=== PATIENT | female | born 1950 | race Caucasian/White ===

== ENCOUNTER 2017-03-07 05:29 | Inpatient (IN) | payer OTHER, MEDICAID ==
--- NOTE | 2017-03-02 08:30 | GHP ---
[f rep st] PREOP HISTORY AND PHYSICAL DATE OF ADMISSION: 03/07/2017 PROBLEM: Left hip arthritis. HISTORY OF PRESENT ILLNESS: The patient is a 66-year-old woman admitted for a left total hip arthrop lasty. She has had severe progressive pain in her left hip. It is painful to walk. She is using a walker. She has pain during the day and night pain. She has tried anti-inflammatory medications and physical therapy without benefit. She had a right total hip arthroplasty in [place] in 2005. She is admitted for a left total hip art hroplasty. PAST MEDICAL HISTORY: She is treated for hypertension, diabetes, and gout. She has peripheral neuro levy secondary to her diabetes. CURRENT MEDICATIONS: Allopurinol 300 mg per day. Amitriptyline 100 mg at bedtime. Atenolol 50 mg/c hlorthalidone 25 mg once daily. Metformin 1000 mg b.i.d. She was recently started on antibiotics fo r a sore throat. She will discontinue those prior to her surgery. PAST MEDICAL HISTORY: There is no history of heart disease, stents, DVT, hepatitis, sleep apnea, or bleeding problems. DRUG ALLERGIES: Sulfa. She also has environmental allergies. Metal allergies: None. Latex allerg y: None. SOCIAL HISTORY: The patient is single. She will have assistance at home from her sons. She occasio ema smokes cigarettes. She does not drink alcohol. She is retired. FAMILY HISTORY: Positive for stroke and diabetes. PHYSICAL EXAMINATION: VITAL SIGNS: Height 5 feet 3 inches. Weight 208 pounds. BMI 36.8. HEENT: Eyes: Conjunctivae and sclerae are clear. Pupils are round and reactive. Mouth: Good oral hygiene . She has removable partial upper and lower bridges. CHEST: Clear. HEART: Regular rhythm. No mu rmurs. EXTREMITIES: Pertinent findings are limited to her left hip. She has full extension and 90 degrees of flexion. 0 degrees of internal and external rotation. Abduction 20 degrees. IMAGING: Her films show a hmbbu-fk-ppmac Biomet total hip on the right. She has very severe degener ative arthritis on the left side. She is xlal-cv-twhp. Extensive osteophyte formation is present. She is at least 10 mm short on the left. PLAN: She will undergo a left total hip arthroplasty. The surgery has been described to her, includ ing the risks, complications, expectations, and recovery time. I have explained to her the risk of d islocation, leg length inequality, infection, and sciatic nerve injury. She also understands there i s a small chance she might need revision surgery in the future. She is short preoperatively, and I i ntend to lengthen her on the left. All her questions have been answered, and she consents to surgery . Copy requested to: Dr. Jazmin George /[id number]/MODL
[2017-03-07] MEDS ORDERED: ROPIVACAINE 0.2% 80 MG, EPINEPHrine 0.2 MG, KETOROLAC TROMETHAMINE 30 MG in BAG 0 ML IU ONE (06:00)
[2017-03-07] MEDS ORDERED: TRANEXAMIC ACID IV ONE (06:00)
[2017-03-07] MEDS ORDERED: POVIDONE-IODINE 20 ML in SODIUM CL IRRIG SOLUTION 500 ML IRR ONE (06:00)
[2017-03-07] MEDS ORDERED: NS IV ONE (06:00)
[2017-03-07] MEDS ORDERED: ceFAZolin 2 GM/DEXTROSE 100 ML IV ONE (06:19)
[2017-03-07] MEDS ORDERED: DEXAMETHASONE 4 MG/ML VIAL IVP ONE (06:19)
[2017-03-07] MEDS ORDERED: FAMOTIDINE 20 MG TAB PO ONE (06:19)
[2017-03-07] MEDS ORDERED: ACETAMINOPHEN 325 MG TAB PO ONE (06:19)
[2017-03-07] MEDS ORDERED: LIDOCAINE 1% 2 ML INJ ID PRN (06:21)
[2017-03-07] MEDS ORDERED: LR 1,000 ML IV ONE (06:21)
--- NOTE | 2017-03-07 07:02 | PDANEPAE ---
ANE History of Present Illness L Total hip arthroplasty ANE Past Medical History - Cardiovascular History Hx Hypertension: Yes Hx Arrhythmias: No Hx Chest Pain: No Hx Coronary Artery / Peripheral Vascular Disease: No Hx CHF / Valvular Disease: No Hx Palpitations: No Cardiovascular History Comment: PCP MONITORS BP MEDS - Pulmonary History Hx COPD: No Hx Asthma/Reactive Airway Disease: No Hx Recent Upper Respiratory Infection: No Hx Oxygen in Use at Home: No Hx Sleep Apnea: No Sleep Apnea Screening Result - Last Documented: Positive Pulmonary History Comment: DAVID TRIGGERS - Neurologic History Hx Cerebrovascular Accident: No Hx Seizures: No Hx Dementia: No - Endocrine History Hx Diabetes: Yes Hypothyroid: No Obesity: severe Endocrine History Comment: TYPE 2 DM, gout - Renal History Hx Renal Disorders: No - Liver History Hx Hepatic Disorders: Yes Hepatic History Comment: ELEVATED LIVER ENZYMES- PCP IS MONITORING - Neurological & Psychiatric Hx Hx Neurological and Psychiatric Disorders: Yes Neurological / Psychiatric History Comment: ANXIETY SURROUNDING SURGERY - Cancer History Hx Cancer: Yes Cancer History Comment: SKIN CA FROM LEFT ARM/ WRIST AREA - Congenital Disorder History Hx Congenital Disorders: No - GI History GERD: mild Hx Gastrointestinal Disorders: No - Other Health History Other Health History: WEARS READING GLASSES. UPPER AND LOWER PARTIAL PLATES - Chronic Pain History Chronic Pain: Yes (LEFT HIP PAIN- OSTEOARTHRITIS) - Surgical History Prior Surgeries: RIGHT MARIO 2006. HYSTERECTOMY AND APPY. GRANT. LEFT THUMB TRIGGER FINGER REPAIR. TONSILS CHILD ANE Review of Systems Review of Systems: - Exercise capacity METS (RN): 4 METS (limited ambulation due to severe hip pain) ANE Patient History - Allergies Allergies/Adverse Reactions: Sulfa (Sulfonamide Antibiotics) Allergy (Verified 02/12/17 10:54) Hives - Home Medications Home Medications: Allopurinol 02/12/17 [Last Taken 03/06/17] Atenolol-Chlorthalidone 50-25 02/12/17 [Last Taken 03/07/17 05:00] IBUPROFEN 02/12/17 [Last Taken 02/28/17] Metformin 1000 mg BID 02/12/17 [Last Taken 03/06/17] Potassium Chloride 02/12/17 [Last Taken 03/06/17] - NPO status NPO Since - Liquids (Date): 03/06/17 NPO Since - Liquids (Time): 22:00 NPO Since - Solids (Date): 03/06/17 NPO Since - Solids (Time): 18:00 - Anes Hx Anes Hx: no prior problems - Smoking Hx Smoking Status: Current some day smoker (Decreasing smoking amount in recent years, smoked since youth) - Alcohol Use Alcohol Use: None - Family Anes Hx Family Anes Hx: none Family Hx Anesthesia Complications: NONE ANE Labs/Vital Signs - Vital Signs Blood Pressure: 123/61 Heart Rate: 73 Respiratory Rate: 16 O2 Sat (%): 93 Height: 157.48 cm Weight: 94.347 kg ANE Physical Exam - Airway Neck exam: FROM Mallampati Score: Class 2 Mouth exam: dentures (partial) - Pulmonary Pulmonary: clear to auscultation - Cardiovascular Cardiovascular: regular rate and rhythym - ASA Status ASA Status: III ANE Anesthesia Plan Anesthesia Plan: general endotracheal anesthesia, spinal
--- NOTE | 2017-03-07 07:04 | PDHPUP ---
History & Physical Update H&P update statement: This history and physical update is based on an assessment of the patient which was completed after admission or registration (within 24 hours), but prior to the surgery/procedure. H&P update: H&P reviewed & patient examined, no change in patient's condition since H&P completed
[2017-03-07] MEDS ORDERED: MIDAZOLAM 2 MG/2 ML VIAL IVP ONE (07:08)
[2017-03-07] MEDS ORDERED: BUPIVACAINE 0.5% 30 ML SDV ONE (07:11)
[2017-03-07] MEDS ORDERED: RANITIDINE 50 MG/2 ML VIAL ONE (07:12)
[2017-03-07] MEDS ORDERED: DEXAMETHASONE 4 MG/ML VIAL ONE (07:12)
[2017-03-07] MEDS ORDERED: ROCURONIUM 50 MG/5 ML VIAL ONE (07:12)
[2017-03-07] MEDS ORDERED: PROPOFOL 200 MG/20 ML VIAL ONE (07:12)
[2017-03-07] MEDS ORDERED: fentaNYL 100 MCG/2 ML INJ ONE (07:12)
[2017-03-07] MEDS ORDERED: MIDAZOLAM 2 MG/2 ML VIAL ONE (07:16)
[2017-03-07] MEDS ORDERED: ceFAZolin 1 GM/5 ML SYR ONE (07:19)
[2017-03-07] MEDS ORDERED: PHENYLEPHRINE 10 MG/ML SDV ONE (08:28)
[2017-03-07] MEDS ORDERED: ONDANSETRON 4 MG/2 ML VIAL ONE (09:07)
[2017-03-07] MEDS ORDERED: GLYCOPYRROLATE 0.2 MG/1 ML VIAL ONE (09:08)
[2017-03-07] MEDS ORDERED: NEOSTIGMINE METHYLSULFATE 3 MG/3 ML SYR ONE (09:08)
[2017-03-07] MEDS ORDERED: DIPHENOXYLATE/ATROPINE LOMOTIL 1 TAB PO PRN (09:40)
[2017-03-07] MEDS ORDERED: PROMETHAZINE HCL 25 MG SUPPR PR PRN (09:40)
[2017-03-07] MEDS ORDERED: ONDANSETRON 4 MG/2 ML VIAL IVP PRN (09:40)
[2017-03-07] MEDS ORDERED: CYCLOBENZAPRINE 10 MG TAB PO PRN (09:40)
[2017-03-07] MEDS ORDERED: TEMAZEPAM 15 MG CAP PO PRN (09:40)
[2017-03-07] MEDS ORDERED: KETOROLAC 30 MG/1 ML SDV IVP PRN (09:40)
[2017-03-07] MEDS ORDERED: oxyCODONE IR 5 MG TAB PO PRN (09:40)
[2017-03-07] MEDS ORDERED: PROMETHAZINE HCL 25 MG/ML INJ IVP PRN (09:40)
[2017-03-07] MEDS ORDERED: ONDANSETRON DISINTEGRATING 4 MG TAB PO PRN (09:40)
[2017-03-07] MEDS ORDERED: POLYETHYLENE GLYCOL 3350 17 GM PKT PO PRN (09:40)
[2017-03-07] MEDS ORDERED: MAGNESIUM HYDROXIDE 30 ML UDCUP PO PRN (09:40)
[2017-03-07] MEDS ORDERED: traMADol 50 MG TAB PO PRN (09:40)
[2017-03-07] MEDS ORDERED: BISACODYL 10 MG SUPP PR PRN (09:40)
[2017-03-07] MEDS ORDERED: LACTULOSE 20 GM/30 ML UDCUP PO PRN (09:40)
[2017-03-07] MEDS ORDERED: METOCLOPRAMIDE 10 MG/2 ML VIAL IVP PRN (09:40)
[2017-03-07] MEDS ORDERED: diphenhydrAMINE 25 MG CAP PO PRN (09:40)
--- NOTE | 2017-03-07 09:40 | POSTOPPROG ---
Post Op Note Date of Operation: 03/07/17 Surgeon: Nawaf Soriano Supervisor Fur Floor Worker: Booker Oliver/ Roma Black Anesthesiologist: Dr. Pramod Watson Anesthesia: GET(General Endotracheal), Spinal Post-op Diagnosis: left hip severe degenerative arthritis. Procedure: Left total hip arthroplasty Inf/Abcess present in the surg proc area at time of surgery?: No EBL: 100-500
[2017-03-07] MEDS ORDERED: fentaNYL 100 MCG/2 ML INJ IVP PRN (09:41)
[2017-03-07] MEDS ORDERED: NALOXONE HCL 0.4 MG/ML INJ IVP PRN (09:41)
--- NOTE | 2017-03-07 10:49 | GOP ---
[f rep st] OPERATIVE REPORT DATE OF OPERATION: 03/07/2017 SURGEON: Nawaf Soriano MD DONOR TECHNICIAN: Booker Oliver CFA, and Roma Black RN. ANESTHESIA: Spinal anesthesia and general anesthesia. ANESTHESIOLOGIST: Pramod Watson MD PREOPERATIVE DIAGNOSIS: Left hip severe degenerative arthritis. POSTOPERATIVE DIAGNOSIS: Left hip severe degenerative arthritis. PROCEDURE PERFORMED: Left total hip arthroplasty, ceramic femoral head on highly cross-linked polyet hylene cup liner. FINDINGS: DESCRIPTION OF PROCEDURE: The patient was given 2 g of preoperative IV Ancef within 60 minutes of [place] rgery. She also received IV tranexamic acid at a dose of 20 mg/kg. She was placed on the operating room table and given spinal anesthesia with Marcaine by Dr. Watson. She was then placed supine and gi paulina IV sedation. Because of her obesity, Dr. Watson was concerned about managing her airway, thus req uiring general anesthesia. A Conrad catheter was not used. She wore a BERNADETTE stocking and SCD on the no noperative leg. She was rolled to the right lateral decubitus position. The position was secured wi th the pegboard table attachment. An axillary roll was used, and all pressure points were carefully padded. Her bulk made it difficult to position her. I was careful to lock her pelvis in a vertical position. Her perineum was isolated with plastic adhesive drapes. The left hip and left lower extre mity were prepped with ChloraPrep. They were draped free using sterile sheets, stockinette, and Ioba n plastic drapes. The World Health Organization time-out was performed to verify the correct surgical side and the [facility] patient identity. The [place] time-out was also performed. I made a 6-inch straight oblique posterolateral hip skin incision. Subcutaneous tissue was sharply d ivided and hemostasis was obtained using electrocautery. The fascia henri was identified and split al nilton the axis of its fibers. I curved posteriorly and proximally, and split the fascia of the gluteus bonnie and bluntly split the muscle fibers in line with their orientation. The Charnley self-retai brandy retractor was inserted. Her sciatic nerve was located, partially exposed, and protected through out the procedure. The external rotators and the posterior hip capsule were divided as separate laye rs at the base of the femoral neck, tagged, and reflected posteriorly. A smooth 8-inch Steinmann pin was inserted vertically into the ilium, superior to the acetabulum. An 8-inch drill bit was inserte d vertically into the greater trochanter and parallel to the first pin. The distance between the two was measured for leg length reference. Her femoral head was dislocated posteriorly. Severe degener ative changes were present on the femoral head. The femoral neck was osteotomized at the appropriate level and inclination. I was careful to preserve all of her posterior capsule, although it was thin, as well as preserving m ost of the anterior capsule. The remnant of her damaged labrum was excised. I prepared the femur first. This allowed me to biotech production specialist the amount of natural femoral neck anteversion. She had about 10 degrees of femoral neck anteversion. The canal was opened laterally with a box ch mary. I hand broached sequentially up to size 5. The size 5 broach was used as a trial stem. I was careful to lateralize adequately. Appropriate retractors were inserted to expose the acetabulum. The acetabulum was reamed sequentiall y up to 53 mm. I selected a 54 mm Danny Tritanium solid-backed hemispherical shell. This was mayco ed securely into place in the proper degree of inclination and anteversion. I used the transverse ac etabular ligament and other acetabular bony landmarks to help me properly orient the cup. I inserted a screw-in metal dome hole plug. I performed a series of trial reductions to determine length and stability. I concluded that the siz e 5 stem with a high offset and a -2.5 mm neck length with a 36 mm head and a 0-degree trial liner ga ve me the proper combination of appropriate lengthening and good anterior and posterior stability. S he was 8 or 10 mm short preoperatively, and I was intentionally lengthening her to correct some of th at deficit. She was tight in full extension. The 0-degree [place] X3 highly cross-linked polyethylene cup liner was inserted and tapped securely i nto place. I selected the Danny Accolade 2 stem in a size 5 with high offset. This was inserted p ress-fit and was a very tight fit. I did one final trial reduction and confirmed that the -2.5 mm ne ck length with a 36 mm head was the proper combination. I selected the [place] Biolox Delta ceramic head with an outside diameter of 36 mm and a neck length of -2.5 mm. The head was tapped securely on to the clean trunnion. The acetabulum was irrigated, cleaned, and the hip was reduced one final time . She had excellent anterior and posterior stability and appropriate lengthening. 40 mL of the joint anesthetic cocktail was injected into the capsule, the deep musculature, and the s ubcutaneous tissues around the skin edges. The joint was thoroughly irrigated one final time with a dilute Betadine solution. Her sciatic nerve was reinspected and looked unharmed. The external rotat ors and the posterior hip capsule were repaired in separate layers with #2 FiberWire sutures through drill holes in the greater trochanter. This provided a strong posterior capsular and external rotato r repair. Her fascia henri was closed first with a couple of uybcsz-ng-wgudw #2 interrupted FiberWire sutures followed by a running #2 barbed Ethicon Stratafix PDO suture. The subcutaneous tissues were closed with a running 0 barbed Ethicon Stratafix Monoderm suture. The skin was closed with a runnin g 3-0 barbed Ethicon Stratafix Monoderm subcuticular suture. The skin edges were reapproximated and sealed with Dermabond glue. The wound was covered with a strip of Telfa, and everything was held in place with a piece of clear plastic Tegaderm. A long-leg BERNADETTE stocking and SCD were applied to her left lower extremity. She wore a stocking and SC D on the opposite leg during the procedure. An abduction pillow was placed between her knees. She w as awakened from anesthesia and rolled to the supine position on her [facility]. She was taken to PACU in satisfactory condition. There were no recognized intraoperative complications. The estimated blood loss was 200 mL. The sponge and needle count were correct on 2 occasions. I used a Danny Tritanium hemispherical solid-backed press-fit acetabular shell with an outside diam eter of 54 mm. The liner was a [place] X3 0-degree highly cross-linked liner with an inside diameter of 36 mm. The femoral component was a high offset [place] Accolade II stem in a size 5 and press-fi t. The femoral head was a Danny Biolox Delta ceramic head with a -2.5 mm neck length and a 36 mm o utside diameter. Booker Oliver and Roma Black acted as surgical assistants. Their assistance was a medical necessi ty for safe completion of the procedure. /[id number]/MODL
[2017-03-07] MEDS: LR 1,000 ML IV SCH ×2 (12:42→20:52)
[2017-03-07] MEDS: ACETAMINOPHEN 325 MG TAB PO SCH ×3 (12:56→23:18)
[2017-03-07] MEDS ORDERED: ceFAZolin 2 GM/DEXTROSE 100 ML IV SCH (14:00)
[2017-03-07] MEDS: ceFAZolin 2 GM in D5W 100 ML IV SCH ×2 (15:38→22:59)
[2017-03-07] MEDS: ASPIRIN 325 MG TAB PO SCH (20:52)
[2017-03-07] MEDS: SENNOSIDES/DOCUSATE SODIUM TAB PO SCH (20:52)
[2017-03-07] MEDS: FAMOTIDINE 20 MG TAB PO SCH (20:52)
[2017-03-07] MEDS ORDERED: KETOROLAC 0.5% 5 ML OPHT.BTL EACHEYE PRN (21:30)
[2017-03-08] MEDS: LR 1,000 ML IV SCH (05:07)
[2017-03-08] MEDS: ACETAMINOPHEN 325 MG TAB PO SCH (05:07)
[2017-03-08 05:43] LABS: HEMATOCRIT 34.3 % (38.0-47.0); HEMOGLOBIN 11.8 g/dL (12.6-16.3)
--- NOTE | 2017-03-08 07:18 | SOAPPROG ---
SOAP Progress Note Assessment/Plan: Assessment: Afebrile. Awake and alert. She has been walking in the room. Moderate pain. Her dressing is dry. Sciatic nerve intact. H&H are good. Postop films look good. Plan: Physical therapy today. Discharged later today. Her son will be with her at home. 03/08/17 07:17 Objective: Vital Signs Temp Pulse Resp BP Pulse Ox 36.8 C 75 18 93/46 L 95 03/08/17 03:12 03/08/17 03:12 03/08/17 03:12 03/08/17 03:12 03/08/17 03:12 Laboratory Results 03/08/17 05:12 03/07/17 03/08/17 03/09/17 05:59 05:59 05:59 Intake Total 3905 Output Total 1200 Balance 2705 ICD10 Worksheet Patient Problems: Problems Problem Status Onset Osteoarthritis of left hip Acute
[2017-03-08 07:37] VITALS: BP 98/54; PULSE 67; RESP 16; TEMP 98.5; O2SAT 97
[2017-03-08] MEDS ORDERED: metFORMIN HCL 500 MG TAB PO SCH (08:00)
--- NOTE | 2017-03-08 08:05 | GDS ---
[f rep st] DISCHARGE SUMMARY ADMISSION DIAGNOSIS: Left hip severe degenerative arthritis. DISCHARGE DIAGNOSIS: Left hip severe degenerative arthritis. OPERATION PERFORMED: March 07, 2017, a left total hip arthroplasty. POSTOPERATIVE COMPLICATIONS: None. CONDITION ON DISCHARGE: Improved. DESCRIPTION OF HOSPITAL COURSE: The patient was admitted to the hospital the morning of surgery. He r admission white blood cell count was 12,710. Electrolytes, BUN and creatinine were normal. The day, under a combination of Marcaine, spinal, and general anesthesia she underwent a left total hi p arthroplasty. Postoperatively, she was treated with multimodal DVT prophylaxis, including aspirin and early mobilization. On the first postoperative day, her hemoglobin and hematocrit were 11.8 and 34.3. She was seen by Physical Therapy and made satisfactory progress with ambulation and stairs. B y the time of discharge, she was afebrile, her wound was clean and dry, and she was independent walki ng with a walker. DISPOSITION: The patient discharged to her home. I will see her back in the office on March 30, 2017. She may progress to full weightbearing on the left as tolerated. Continue aspirin 325 mg p.o. daily for 21 days. She has prescriptions for oxycodone and tramadol for pain control. She will go to outpatient physical therapy. If there are any problems, she is to call me at the office. /[id number]/MODL
[2017-03-08] MEDS: FAMOTIDINE 20 MG TAB PO SCH (08:42)
[2017-03-08] MEDS: ASPIRIN 325 MG TAB PO SCH (08:42)
[2017-03-08] MEDS: SENNOSIDES/DOCUSATE SODIUM TAB PO SCH (08:43)
[2017-03-08] MEDS ORDERED: FERROUS SULFATE 140 MG TAB.ER PO SCH (09:00)
[2017-03-08] MEDS ORDERED: CHLORTHALIDONE 25 MG TAB PO SCH (09:00)
[2017-03-08] MEDS ORDERED: ATENOLOL 50 MG TAB PO SCH (09:00)
--- NOTE | 2017-03-08 10:14 | PDIAF ---
- Diagnosis Diagnosis: L hip OA Code Status: Full Code - Medication Management Discharge Medications: Medications to Continue on Transfer Allopurinol [Allopurinol 300 MG (RX)] 300 mg PO DAILY@14 02/12/17 [Last Taken ] Atenolol/Chlorthalidone [Atenolol-Chlorthalidone 50-25] 1 each PO DAILY [Last Taken 03/07/17 05:00] Ibuprofen [Motrin (*)] 800 mg PO TID PRN 02/12/17 [Last Taken 02/28/17] Potassium Cl [Klor-Con 20 meq (*)] 20 meq PO BID 02/12/17 [Last Taken 03/05/17 09:00] metFORMIN HCL [Glucophage 1000 mg] 1,000 mg PO BIDMEAL 02/12/17 [Last Taken 18:00] Acetaminophen [Tylenol 325mg (*)] 650 mg PO Q6HRS tab 03/07/17 [Last Taken Unknown] Amitriptyline HCl [Elavil 100 MG (*)] 100 mg PO HS 03/07/17 [Last Taken 03/05/17 ] Aspirin [Aspirin 325 mg (*)] 325 mg PO DAILY tab 03/07/17 [Last Taken Unknown] Ferrous Sulfate [Slow Fe 140 MG (*)] 140 mg PO DAILY tab.er 03/07/17 [Last Taken Unknown] Ketorolac 0.5% [Acular 0.5% Opht Drops (*)] 1 - 2 drops EACHEYE DAILY PRN [Last Taken Unknown] Ondansetron Odt [Zofran Odt 4 mg (*)] 4 mg PO Q4HRS PRN #15 tab 03/07/17 [Last Taken Unknown] Sennosides/Docusate Sodium [Senokot-S] 1 - 2 tab PO BID tab 03/07/17 [Last Taken Unknown] oxyCODONE IR [Oxycodone Ir (*)] 5 - 10 mg PO Q3HRS PRN #30 tab 03/07/17 [Last Taken Unknown] traMADol [Ultram 50 mg (*)] 50 mg PO Q6HRS PRN #30 tab 03/07/17 [Last Taken Unknown] Discharge Medications: Refer to the Discharge Home Medication list for PRN reason. PICC Care - Routine: N/A - Orders Services needed: Home Care, Physical Therapy Home Care Face to Face: I certify that this patient was under my care and that I had the required cuiy-sx-yabu encounter meeting the encounter requirements on the discharge day. My findings support the fact that the patient is homebound as defined in Home Care Face to Face Continued: CMS Chapter 7 Medicare Benefits Manual 30.1.1 , The condition of the patient is such that there exists a normal inability to leave home and consequently, leaving home would require a considerable and taxing effort. Diet Recommendation: no restrictions on diet Diet Texture: Regular Texture Diet Iftikhar Stockings Discontinue Date: 1 week Wound Care Instructions: keep clean and dry. You may shower. Activity/Weight Bearing Restrictions: as tolerated. Posterior hip precautions x 3 weeks. - Follow Up Care Current Providers and Referrals: Jazmin Kang [Primary Care Provider] - Nawaf Soriano MD [Medical Doctor] - 03/30/17
--- NOTE | 2017-03-08 11:33 | ASDISCHSUM ---
Discharge Information Plan Status:Home with Home Health Medically Cleared to Leave: Discharge Date:03/08/2017 10:54 AM D/C Disposition:Home Health Service ADT D/C Disposition:Home, Routine, Self-Care Projected Discharge Date:03/08/2017 11:00 AM Transportation at D/C: Discharge Delay Reason: Follow-Up Date:03/08/2017 11:00 AM Discharge Slot: Final Diagnosis: Placement Information Referral Type:*Home Health Care Services Referral ID:[id number] Provider Name:[facility] Address 1:[address] [place] [address] Address 2: City:[place] Selection Factors: State:[place] Patient Contact Information Contact Name:EVELYNESTHEROLY Relationship:Son Address: Work Phone: City: [facility] Phone: [facility] Code: Email: Financial Information Financial Class: Primary Plan Desc:MEDICARE INPATIENT Primary Plan Number:[id number] Secondary Plan Desc:MEDICA[place] Secondary Plan Number:[id number] Assessment Information BC CM Progress Note CM Note CM Note Notes: Pt medically stable for d/c w [facility]. Date Signed: 03/08/2017 11:32 AM Electronically Signed By:FELICIANO Almazan Intervention Information
[2017-03-08] MEDS ORDERED: ALLOPURINOL 300 MG TAB PO SCH (14:00)
[2017-03-08] MEDS ORDERED: AMITRIPTYLINE HCL 50 MG TAB PO SCH (21:00)
== END 2017-03-08 10:54 | disposition home or self-care (01) | DRG 470 ==
LOC: F3N 05:29
PROVIDERS: ADMIT Orthopaedic Surgery; ATTEND Orthopaedic Surgery
PROC: 0SRB04Z Replacement of Left Hip Joint with Ceramic on Polyethylene Synthetic Substitute, Open Approach (ICD-10-PCS; principal; 2017-03-07 07:15)
DX: M16.12 Unilateral primary osteoarthritis, left hip (principal); Z96.641 Presence of right artificial hip joint; E66.9 Obesity, unspecified; Z68.36 Body mass index [BMI] 36.0-36.9, adult
CPT/HCPCS: 97116-GP; 97161-GP; 97165-GO; G8978-GP-CI; G8979-GP-CI; G8980-GP-CI; G8987-GO-CI; G8988-GO-CI; G8989-GO-CI; J0171; J0690; J1100; J1885; J2250; J2370; J2405; J2704; J2710; J2780; J2795; J3010